=== PATIENT | male | born 1995 | race Caucasian/White ===

== ENCOUNTER 2024-03-03 09:41 | Emergency (ER) | payer OTHER, MEDICAID, SELFPAY ==
--- NOTE | ~2024-03-03 | XR_ITS ---
XR ankle RT min 3V DATE: 03/03/2024 12:40 INDICATION: Fall. Right ankle injury, pain TECHNIQUE: 4 views COMPARISON: None FINDINGS: No fracture or dislocation of the ankle or disruption of the ankle mortise. No periosteal r eaction or bone destruction. IMPRESSION: Negative Reviewed, dictated and finalized at location A. NSION EDUCATOR IMPRESSION: Negative
[2024-03-03 09:59] VITALS: BP 118/80; PULSE 52; RESP 16; TEMP 36.6; O2SAT 100
--- NOTE | 2024-03-03 12:58 | ED.LOWEXIN ---
HPI - Extremity Injury (Lower) General Chief Complaint: Extremity Injury, Lower Stated Complaint: bilateral leg pain, pt fell couple times Time Seen by Provider: 03/03/24 10:27 History of Present Illness HPI Narrative: 28-year-old otherwise healthy male presenting for right ankle pain. Patient states that he fell off of an [employer] truck while Stepping into resting his ankle several days ago. Has been able to bear weight immediately afterwards and has been going to work although within uncomfortable gait and pain with palpation of his ankle and forefoot. Denies any swelling or any bruising. Has not taken any pain medications since this occurred. Patient states he has a high pain tolerance. No previous surgical procedures but states he broke his ankle several years ago requiring casting of the same ankle. Denies any other injuries or trauma. No other systemic symptoms. Related Data Allergies Allergy/AdvReac Type Severity Reaction Status Date / Time No Known Allergies Allergy Unverified 01/04/12 17:23 Review of Systems Review of Systems: As reviewed above in HPI Exam Narrative: GENERAL: [Well-appearing, well-nourished, and in no acute distress.] HEAD: [Normocephalic, atraumatic.] EYES: [PERRLA and EOMI.] ENT: Nares clear, no rhinorrhea or epistaxis. Mucous membranes moist. NECK: Supple. CHEST: [Clear to auscultation. No respiratory distress.] HEART: [Regular rate and rhythm]. No murmur heard. [Normal peripheral pulses.] ABDOMEN: [Soft, nondistended], [nontender], [No rigidity or guarding] EXTREMITIES: Normal range of motion. [No edema.] Tenderness to palpation over the forefoot anteriorly and the syndesmotic joint anteriorly, no tenderness or swelling over the medial or lateral malleolus. No instability to the ankle, full range of motions plantar, dorsiflexion, inversion and eversion. Able to bear weight albeit uncomfortable. No plantar ecchymosis. SKIN: Warm, dry, no rash. NEURO: [No focal deficits]. Alert and oriented [x3.] PSYCH: [Normal mood and affect.] Course Vital Signs Vital signs: Vital Signs Temperature 36.6 C 03/03/24 09:59 Pulse Rate 52 L 03/03/24 09:59 Respiratory Rate 16 03/03/24 09:59 Blood Pressure 118/80 03/03/24 09:59 Pulse Oximetry 100 03/03/24 09:59 Temperature 36.6 C 03/03/24 09:59 Pulse Rate 52 L 03/03/24 09:59 Respiratory Rate 16 03/03/24 09:59 Blood Pressure 118/80 03/03/24 09:59 Pulse Oximetry 100 03/03/24 09:59 MDM - Extremity Injury (Lower) MDM Narrative Medical decision making narrative: 28-year-old male presenting after rolling his ankle and falling on it about several days ago. No external obvious signs of trauma but there is tenderness to palpation of the anterior forefoot and syndesmosis of the ankle. No instability to the joint. He has no plantar ecchymosis, full range of motion is appreciated. Normal pulsations, 2+ pulses and warm extremities. Clinical diagnosis of an ankle sprain at this time. Will obtain x-ray images to make sure that he has no fractures given his previous broken ankle. X-rays were independently reviewed and showed no fracture. Was provided an [place] wrap as well as Toradol on ibuprofen for pain control. Will be discharged with crutches and pain control medications. Medical Records Attestation: I reviewed the patient's medical records. Imaging Data Attestation: I personally reviewed and interpreted this imaging study as follows: My impression: Impressions Ankle X-Ray 03/03/24 13:03 IMPRESSION: Negative Discharge Plan Discharge Clinical Impression: Ankle sprain and strain Patient Disposition: Home, Self-Care Condition: Stable Instructions: Antibiotic Form, Ankle Sprain (DC) Additional Instructions: No fractures or dislocations, rest, ice, Tylenol, ibuprofen and crutches for support. Follow-up with regular doctor. Return with any new or worsening concerns. Patient Language: [place]ian Follow-up/Referrals: PHYSICIAN,CATERING COOK [Primary Care Provider] - Stand Alone Forms: Work/School Release IP Time of Disposition: 13:17
[2024-03-03] MEDS: ACETAMINOPHEN 500 MG TABLET 1000 MG PO (13:56)
[2024-03-03] MEDS: KETOROLAC 10 MG TABLET PO (13:57)
== END 2024-03-03 13:57 | disposition home or self-care (01) ==
PROVIDERS: Emergency Provider Student in an Organized Health Care Education/Training Program
DX: S93.401A Sprain of unspecified ligament of right ankle, initial encounter (principal); X58.XXXA Exposure to other specified factors, initial encounter
CPT/HCPCS: 73610; 99283; A9270